=== PATIENT | male | born 1980 | race Caucasian/White ===

== ENCOUNTER 2016-06-30 12:36 | Emergency (ER) | payer OTHER ==
[~2016-06-30] VITALS: Ht 167.6 cm; Wt 129.3 kg
[~2016-06-30 12:36] MED LIST: ALBU0.0912 IH; BUPR-10 PO; PRON INH
[2016-06-30 12:41] VITALS: BP 147/61
--- NOTE | 2016-06-30 13:56 | NUR ---
Patient ambulated to bed 7. RN evaluating patient at bedside.
--- NOTE | 2016-06-30 14:01 | NUR ---
PATIENT PRESENTS TO ED WITH C/O SOB X 1 MONTH---SEEN AT [facility] 1 MONTH AGO DX PNEUMONIA/ RX Z PACK & PREDNISONE; PT STATES DID NOT IMPROVE AND WORSENING; HX CVA, ASTHMA, PNEUMONIA; RX NONE; DENIES N/V/D; SKIN IS PINK/WARM/DRY; AAOX4 WITH EVEN AND STEADY GAIT; LUNGS WHEEZING BL; HR EVEN AND REGULAR; PT DENIES ANY FEVER, OR CP AT THIS TIME; PATIENT STATES PAIN OF 0/10 AT THIS TIME; VSS; PATIENT POSITIONED FOR COMFORT; HOB ELEVATED; BEDRAILS UP X2; BED DOWN. ER MD MADE AWARE OF PT STATUS.
[2016-06-30 14:09] VITALS: BP 120/82
--- NOTE | 2016-06-30 14:09 | NUR ---
Patient discharged with v/s stable. Written and verbal after care instructions given and explained. Patient alert, oriented and verbalized understanding of instructions. Ambulatory with steady gait. All questions addressed prior to discharge. ID band removed. Patient advised to follow up with PMD. Rx of ZITHROMAX, MEDROL given. Patient educated on indication of medication including possible reaction and side effects. Opportunity to ask questions provided and answered. Addendum: 06/30/16 at 1418 by ESTELLE PT REFUSE BREATHING TX, USES A MACHINE
== END 2016-06-30 14:09 | disposition home or self-care (01) ==
LOC: MED 12:36
DX: J45.909 Unspecified asthma, uncomplicated (principal); I10 Essential (primary) hypertension; J44.9 Chronic obstructive pulmonary disease, unspecified; Z86.73 Personal history of transient ischemic attack (TIA), and cerebral infarction without residual deficits; Z88.1 Allergy status to other antibiotic agents
CPT/HCPCS: 71020; 99284

== ENCOUNTER 2016-07-09 16:43 | Emergency (ER) | payer SELFPAY ==
[~2016-07-09 16:43] MED LIST changes: -ALBU0.0912 IH; +ATROVENT IH; +BACTRIM DS 800/1 TAB PO; +BACTRIM DS 8001 TA1 PO; -BUPR-10 PO; +MUCINEX600 MG PO; -PRON INH; +PROVENTIL HFA M18 GM INH; +PROVENTIL2.5 MG/3 M IH; +PROVENTIL2.5 MG/3 M INH; +TYLENOL COLD SE1 TAB PO; +UNICOMPLEX NEW1 CAP PO; +VENTOLIN H0.09 MG/Ac IH; +WELLBUTRIN SR100 MG PO; +XANAX0.25 MG PO; +XANAX0.5 MG PO; +ZITHROMAX Z-PA250 MG PO
--- NOTE | 2016-07-09 18:00 | NUR ---
PATIENT LEFT WITHOUT BEING SEEN BY DR. LOWERY. NO FURTHER CARE PROVIDED FOR PATIENT.
== END 2016-07-09 18:00 | disposition left against medical advice (07) ==
LOC: MED 16:43
DX: R07.0 Pain in throat (principal); Z53.21 Procedure and treatment not carried out due to patient leaving prior to being seen by health care provider

== ENCOUNTER 2016-08-10 04:48 | Emergency (ER) | payer OTHER ==
[~2016-08-10] VITALS: Ht 172.7 cm; Wt 141.1 kg
[2016-08-10 05:05] VITALS: BP 129/70
--- NOTE | 2016-08-10 05:14 | NUR ---
PATIENT TO ER BED 7
[2016-08-10 05:15] VITALS: BP 129/70
--- NOTE | 2016-08-10 05:15 | NUR ---
PT IS 36/M BIB GIRLFRIEND TO ED WITH C/O BOTH LEGS SWELLING AND NUMBNESS X 3-4 DAYS, NO TRAUMA OR INJURYD. ENIES N/V/D; SKIN IS PINK/WARM/DRY; AAOX4 WITH EVEN AND STEADY GAIT; LUNGS CLEAR BL; HR EVEN AND REGULAR; PT DENIES ANY FEVER, CP, SOB, OR COUGH AT THIS TIME; PATIENT STATES PAIN OF 0/10 AT THIS TIME; VSS; PATIENT POSITIONED FOR COMFORT; HOB ELEVATED; BEDRAILS UP X2; BED DOWN. ER MD MADE AWARE OF PT STATUS.
--- NOTE | 2016-08-10 06:38 | NUR ---
PATIENT LEFT WITHOUT BEING SEEN BY DR. CHAVEZ. NO FURTHER CARE PROVIDED FOR PATIENT.
== END 2016-08-10 06:38 | disposition left against medical advice (07) ==
LOC: MED 04:48
DX: M79.89 Other specified soft tissue disorders (principal); R20.0 Anesthesia of skin; Z53.21 Procedure and treatment not carried out due to patient leaving prior to being seen by health care provider

== ENCOUNTER 2016-08-12 02:05 | Emergency (ER) | payer OTHER ==
[~2016-08-12] VITALS: Ht 172.7 cm; Wt 141.1 kg
[2016-08-12 02:06] VITALS: BP 120/66
--- NOTE | 2016-08-12 03:20 | NUR ---
PT TAKEN TO BED 8
--- NOTE | 2016-08-12 03:30 | NUR ---
Patient being evaluated by physician at bedside.
--- NOTE | 2016-08-12 03:57 | NUR ---
X-Ray at bedside.
[2016-08-12 05:33] VITALS: BP 119/70
== END 2016-08-12 05:34 | disposition home or self-care (01) ==
LOC: MED 02:05
DX: R60.0 Localized edema (principal); E66.9 Obesity, unspecified; I10 Essential (primary) hypertension; J45.909 Unspecified asthma, uncomplicated; J44.9 Chronic obstructive pulmonary disease, unspecified; Z68.42 Body mass index [BMI] 45.0-49.9, adult; Z86.73 Personal history of transient ischemic attack (TIA), and cerebral infarction without residual deficits; Z88.1 Allergy status to other antibiotic agents
CPT/HCPCS: 36415; 71010; 80053; 81001; 83880; 85025; 99285; Q0092

== ENCOUNTER 2017-07-16 16:37 | Emergency (ER) | payer OTHER ==
[~2017-07-16] VITALS: Ht 172.7 cm; Wt 122.5 kg
[~2017-07-16 16:37] MED LIST changes: +ALBU0.0912 IH; -ATROVENT IH; -BACTRIM DS 800/1 TAB PO; -BACTRIM DS 8001 TA1 PO; +BUPR-10 PO; -MUCINEX600 MG PO; +PRON INH; -PROVENTIL HFA M18 GM INH; -PROVENTIL2.5 MG/3 M IH; -PROVENTIL2.5 MG/3 M INH; -TYLENOL COLD SE1 TAB PO; -UNICOMPLEX NEW1 CAP PO; -VENTOLIN H0.09 MG/Ac IH; -WELLBUTRIN SR100 MG PO; -XANAX0.25 MG PO; -XANAX0.5 MG PO; -ZITHROMAX Z-PA250 MG PO
[2017-07-16 16:47] VITALS: BP 147/83
--- NOTE | 2017-07-16 16:50 | NUR ---
PT AMBULATED TO [facility] WITH STEADY GATE
[2017-07-16 17:20] VITALS: BP 147/83
--- NOTE | 2017-07-16 17:20 | NUR ---
PATIENT AMBULATED TO ER BED 3
[2017-07-16] MEDS ORDERED: DEXAMETHASONE 10 MG/ML VIAL IM ONE (18:45)
[2017-07-16] MEDS ORDERED: KETOROLAC 60 MG/2 ML VIAL IM ONE (18:45)
--- NOTE | 2017-07-16 18:54 | NUR ---
PT REFUSES MEDS, STATES "IM GONNA GO SMOKE A JOINT" . DR AVENDAÑO INFORMED. AWAITING ID PAPERWORK.
--- NOTE | 2017-07-16 19:01 | NUR ---
PT LEFT WITHOUT D/C PAPERWORK, DR AVENDAÑO INFORMED.
== END 2017-07-16 19:01 | disposition home or self-care (01) ==
LOC: MED 16:37
DX: M10.9 Gout, unspecified (principal); J44.9 Chronic obstructive pulmonary disease, unspecified; I10 Essential (primary) hypertension; Z86.73 Personal history of transient ischemic attack (TIA), and cerebral infarction without residual deficits; Z79.899 Other long term (current) drug therapy; Z88.8 Allergy status to other drugs, medicaments and biological substances
CPT/HCPCS: 99281

== ENCOUNTER 2017-11-15 01:23 | Emergency (ER) | payer OTHER ==
[~2017-11-15] VITALS: Ht 172.7 cm; Wt 135.2 kg
[2017-11-15 01:23] VITALS: BP 156/91
--- NOTE | 2017-11-15 01:23 | NUR ---
PT BIB ALS FOR GENERALIZED BODY ACHES. PT STATS 8/10 PAIN ALL OVER HIS BODY. PT IS HYPERTENSIVE AND TACHY. HE STATES SMOKING "DUBS MARIJUANA" BEFORE COMING TO ED. PT A&OX4. POSITIONED IN BED FOR COMFORT. BILAT WHEEZING HEAR. PT STATES HIS NORM AND NO NEED FOR TREATMENT. BED RAILS UP X2. BED LOW. ER MD AWRE. CONTINUE TO MONITOR.
--- NOTE | 2017-11-15 01:23 | NUR ---
PT [facility]. TAKEN TO BED 2
--- NOTE | 2017-11-15 01:25 | NUR ---
Dr. Donis evaluating patient at bedside.
[2017-11-15] MEDS ORDERED: ALBUTEROL 0.083% 2.5 MG/3 ML NEBU INH ONE (01:50)
[2017-11-15] MEDS ORDERED: ENALAPRILAT 2.5 MG/2 ML VIAL IVP ONE (01:50)
--- NOTE | 2017-11-15 02:09 | NUR ---
PT REFUSED HHN TX. RM LILA AT BEDSIDE. DR STRATTON NOTIFIED.
[2017-11-15 02:34] LABS: ANION GAP 9.2 (8-16); CARBON DIOXIDE 27.7 mmol/L (21-32); CREATININE 0.9 mg/dL (0.7-1.3); POTASSIUM 3.9 mmol/L (3.5-5.1)
[2017-11-15 02:42] LABS: ALBUMIN 3.5 g/dL (3.4-5.0); TOTAL BILIRUBIN 0.4 mg/dL (0.0-1.0)
[2017-11-15 02:46] LABS: CHOL/HDL RATIO 3.4 (1-4.5)
[2017-11-15 02:47] LABS: CREATINE KINASE MB 1.3 ng/mL (0-3.6)
--- NOTE | 2017-11-15 02:47 | NUR ---
PT REFUSED ALL MEDICATOINS AT THIS TIME. DR VIRAL CAMPOS. PT STATES UNDERSTANDING FOR NEED OF MEDICATION. PT STATES HE WANTS PAIN MEDICATION INSTEAD.
[2017-11-15] MEDS ORDERED: KETOROLAC 30 MG/ML VIAL IVP ONE (03:00)
[2017-11-15 03:21] VITALS: BP 143/86
--- NOTE | 2017-11-15 03:21 | NUR ---
Patient discharged with v/s stable. Written and verbal after care instructions given and explained. Patient verbalized understanding. Ambulatory with steady gait. All questions addressed prior to discharge. Advised to follow up with PMD.
[2017-11-15 03:23] LABS: BASOPHILS # (AUTO) 0.1 K/uL (0.00-0.22); BASOPHILS % (AUTO) 0.8 % (0.0-2.0); EOSINOPHILS # (AUTO) 0.6 K/uL (0-0.4); HEMATOCRIT 42.6 % (36-52); HEMOGLOBIN 14.1 g/dL (12.0-18.0); LYMPHOCYTES % (AUTO) 21.1 % (20.5-51.1); MEAN CORPUSCULAR HEMOGLOBIN 27 pg (27-31); MEAN CORPUSCULAR HGB CONC 33 g/dL (33-37); MEAN CORPUSCULAR VOLUME 81.8 fL (80-94); MONOCYTES # (AUTO) 1.1 K/uL (0.8-1.0); MONOCYTES % (AUTO) 7.9 % (1.7-9.3); NEUTROPHILS # (AUTO) 9.5 K/uL (1.8-7.7); NEUTROPHILS % (AUTO) 65.7 % (42.2-75.2); PLATELET COUNT (AUTO) 268 K/uL (140-450); RED BLOOD CELL COUNT(AUTO) 5.21 MIL/uL (4.20-6.10); RED CELL DISTRIBUTION WIDTH 14.2 % (11.6-13.7)
[2017-11-15 03:24] LABS: EOSINOPHILS % (AUTO) 4.5 % (0.0-4.0); WHITE BLOOD COUNT (AUTO) 14.4 K/uL (4.8-10.8)
== END 2017-11-15 03:21 | disposition home or self-care (01) ==
LOC: MED 01:23
DX: M43.6 Torticollis (principal); J45.909 Unspecified asthma, uncomplicated; Z86.73 Personal history of transient ischemic attack (TIA), and cerebral infarction without residual deficits; Z88.8 Allergy status to other drugs, medicaments and biological substances; Z79.899 Other long term (current) drug therapy
CPT/HCPCS: 36415; 71045; 80053; 82550; 82553; 83880; 84484; 85025; 85379; 93005; 99285; J1885; J3490; J7613

== ENCOUNTER 2018-07-17 01:57 | Emergency (ER) | payer MEDICAID, OTHER ==
[~2018-07-17] VITALS: Ht 172.7 cm; Wt 136.1 kg
[2018-07-17 02:00] VITALS: BP 144/67
--- NOTE | 2018-07-17 02:00 | NUR ---
TO BED # 09 AMBULATORY
--- NOTE | 2018-07-17 02:07 | NUR ---
38/M PRESENTS TO ED WITH FAMILY/FRIEND, C/O PRODUCTIVE COUGH WITH WHITE CREAMY PHLEGM, X1 WEEK. PT REPORTS SUBJECTIVE FEVER, AFEBRILE AT THIS TIME. REPORTS CHEST TIGHTNESS. DENIES N/V. PT AOX4, GCS 15, SKIN NORMAL DRY AND INTACT, RR EVEN AND UNLABORED. LUNGS WITH R GREATER THAN L WHEEZE. HX ASTHMA, CVA (10-15 YEARS AGO), PNA (1997) DENIES TAKING RX; REPORTS MARIJUANA SMOKING
--- NOTE | 2018-07-17 02:14 | NUR ---
Patient being evaluated by physician at bedside.
[2018-07-17] MEDS ORDERED: ALBUTEROL SULFATE/IPRATROPIU 3 ML SOL IH ONE ×2 (02:20→03:10)
--- NOTE | 2018-07-17 02:30 | NUR ---
Respiratory Therapist at bedside for respiratory intervention.
--- NOTE | 2018-07-17 02:53 | NUR ---
X-Ray at bedside.
[2018-07-17] MEDS ORDERED: AZITHROMYCIN 250 MG TAB PO ONE (03:10)
[2018-07-17] MEDS ORDERED: methylPREDNISolone SS 125 MG/2 ML VIAL IM ONE (03:10)
--- NOTE | 2018-07-17 03:18 | NUR ---
Respiratory Therapist at bedside for respiratory intervention.
--- NOTE | 2018-07-17 03:30 | NUR ---
Dr. Talamantes at bedside
[2018-07-17 03:39] VITALS: BP 132/95
--- NOTE | 2018-07-17 03:39 | NUR ---
Patient discharged with v/s stable. Written and verbal after care instructions given and explained. Patient alert, oriented and verbalized understanding of instructions. Ambulatory with steady gait. All questions addressed prior to discharge. ID band removed. Patient advised to follow up with PMD. Rx of PREDNISONE, ALBUTEROL INHALER, AZITHROMYCIN given. Patient educated on indication of medication including possible reaction and side effects. Opportunity to ask questions provided and answered.
== END 2018-07-17 03:39 | disposition home or self-care (01) ==
LOC: MED 01:57
DX: J20.9 Acute bronchitis, unspecified (principal); J44.9 Chronic obstructive pulmonary disease, unspecified; I10 Essential (primary) hypertension; F12.10 Cannabis abuse, uncomplicated; Z86.73 Personal history of transient ischemic attack (TIA), and cerebral infarction without residual deficits; Z88.8 Allergy status to other drugs, medicaments and biological substances; Z79.899 Other long term (current) drug therapy
CPT/HCPCS: 71045; 94640; 96372; 99284; J2930; J7620; Q0092

== ENCOUNTER 2018-10-27 03:10 | Emergency (ER) | payer MEDICAID ==
[~2018-10-27] VITALS: Ht 172.7 cm; Wt 131.5 kg
[2018-10-27 03:19] VITALS: BP 150/80
--- NOTE | 2018-10-27 03:19 | NUR ---
to bed # 08 ambulatory
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
[2018-10-27] MEDS ORDERED: DICYCLOMINE HCL LIQUID 20 MG, ALUMINUM HYD/MAG/SIMETHICONE 30 ML, LIDOCAINE VISCOUS 2% ... PO ONE ×3 (04:00)
[2018-10-27] MEDS ORDERED: ONDANSETRON 4 MG ODT PO ONE (04:00)
[2018-10-27 04:25] VITALS: BP 121/81
--- NOTE | 2018-10-27 04:32 | NUR ---
Patient discharged with v/s stable. Written and verbal after care instructions given and explained. Pt educated on eating low sugar, no caffeinated, no greasy or fatty foods, and to drink enough water until urine is clear. Patient alert, oriented and verbalized understanding of instructions. Ambulatory with steady gait. All questions addressed prior to discharge. ID band removed. Patient advised to follow up with PMD. Rx of ZOFRAN was given. Patient educated on indication of medication including possible reaction and side effects. Opportunity to ask questions provided and answered.
== END 2018-10-27 04:25 | disposition home or self-care (01) ==
LOC: MED 03:10
DX: T62.8X1A Toxic effect of other specified noxious substances eaten as food, accidental (unintentional), initial encounter (principal); R11.2 Nausea with vomiting, unspecified; K92.0 Hematemesis; R19.7 Diarrhea, unspecified; J44.9 Chronic obstructive pulmonary disease, unspecified; I10 Essential (primary) hypertension; J45.909 Unspecified asthma, uncomplicated; Z86.73 Personal history of transient ischemic attack (TIA), and cerebral infarction without residual deficits; Z79.899 Other long term (current) drug therapy; Z88.8 Allergy status to other drugs, medicaments and biological substances; Y92.89 Other specified places as the place of occurrence of the external cause
CPT/HCPCS: 99283; Q0162

== ENCOUNTER 2018-11-26 23:41 | Emergency (ER) | payer MEDICAID ==
[~2018-11-26] VITALS: Ht 172.7 cm; Wt 127.0 kg
[2018-11-26 23:41] VITALS: BP 123/71
--- NOTE | 2018-11-26 23:41 | NUR ---
PT [facility] ALS. TAKEN TO BED 9
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
[2018-11-26] MEDS ORDERED: IPRATROPIUM 0.02% 0.5 MG/2.5 ML NEBU INH ONE (23:50)
[2018-11-26] MEDS ORDERED: ALBUTEROL 0.083% 2.5 MG/3 ML NEBU INH ONE (23:50)
--- NOTE | 2018-11-26 23:51 | NUR ---
X-Ray at bedside.
--- NOTE | 2018-11-26 23:56 | NUR ---
Jolene madsen in [facility] - 11/26/18 at [address] Miguel Angel zuniga patient.
--- NOTE | 2018-11-26 23:56 | NUR ---
Dr. Michelle examinig patient.
--- NOTE | 2018-11-26 23:56 | NUR ---
Respiratory Therapist at bedside for respiratory intervention
[2018-11-27] MEDS ORDERED: DEXAMETHASONE 4 MG TAB PO STA (00:48)
--- NOTE | 2018-11-27 00:51 | NUR ---
PT LAYING IN BED, SPO2 97% ON RA, RR EVEN AND UNLABORED. LUNG SOUNDS WITH MILD EXPIRATORY WHEEZE BUT WITH SIGNIFICANT IMPROVEMENT. PT DENIES SOB, REPORTS FEELING BETTER. ALL NEEDS MET.
[2018-11-27] MEDS ORDERED: DEXAMETHASONE 4 MG TAB ONE (01:27)
[2018-11-27 01:50] VITALS: BP 111/81
--- NOTE | 2018-11-27 01:50 | NUR ---
PT DISCHARGED WITH PAPERWORK. RX VENTOLIN INHALATION AEROSOL. EDUCATED PT REGARDING MEDICATION AND S/E. EDUCATED PT REGARDING D/C DIAGNOSIS AND INSTRUCTIONS. PT VERBALIZED UNDERSTANDING OF TEACHING. TOLD PT TO FOLLOW UP WITH PCP AND WHEN TO RETURN TO ED. PT VSS. PT DENIES ANY SOB/DIFFICULTY BREATHING. ALL QUESTIONS ANSWERED.
== END 2018-11-27 01:50 | disposition home or self-care (01) ==
LOC: MED 23:41
DX: J45.901 Unspecified asthma with (acute) exacerbation (principal); I10 Essential (primary) hypertension; J44.9 Chronic obstructive pulmonary disease, unspecified; Z86.73 Personal history of transient ischemic attack (TIA), and cerebral infarction without residual deficits; Z79.899 Other long term (current) drug therapy; Z88.8 Allergy status to other drugs, medicaments and biological substances
CPT/HCPCS: 71045; 94640; 99283; J7613; J7644; Q0092

== ENCOUNTER 2019-02-06 02:48 | Emergency (ER) | payer MEDICAID ==
[~2019-02-06] VITALS: Ht 172.7 cm; Wt 136.1 kg
[2019-02-06 02:50] VITALS: BP 148/80
--- NOTE | 2019-02-06 02:50 | NUR ---
PT AMBUALTED TO BED #4
[2019-02-06] MEDS ORDERED: predniSONE 20 MG TAB PO ONE (02:55)
[2019-02-06] MEDS ORDERED: ALBUTEROL 0.083% 2.5 MG/3 ML NEBU INH ONE ×2 (02:55→03:25)
[2019-02-06] MEDS ORDERED: ALBUTEROL SULFATE/IPRATROPIU 3 ML SOL IH ONE (02:55)
--- NOTE | 2019-02-06 02:55 | NUR ---
38 Y/O M PRESENTS TO ER C/O SHORTNESS OF BREATH X3 DAYS. RESPIRATIONS ARE EVEN AND LABORED. BILATERAL WHEEZING HEARD THROUGHOUT. RESPIRATIONS 26/MIN. O2 SATURATION 95% ON RA. PT C/O CHEST PAIN UPON BREATHING. PAIN 9/10, DULL, COMES AND GOES. PT PLACED IN HIGH FOWLERS POSITION, BED IN LOWEST POSITION, SIDE RAIL UP X1. WAITING FOR ERMD TO EVALUATE PT. ALLERGIES: NKA MED HX: ASTHMA AND STROKE
--- NOTE | 2019-02-06 03:04 | NUR ---
DR. JUNIOR EVALUATING PT AT BEDSIDE
--- NOTE | 2019-02-06 03:07 | NUR ---
RT AT BEDSIDE FOR BREATHING TX
--- NOTE | 2019-02-06 04:21 | NUR ---
RT AT BEDSIDE
--- NOTE | 2019-02-06 04:29 | NUR ---
Patient discharged with v/s stable. Written and verbal after care instructions given and explained. Pt encouraged to take medications as needed and to follow up with PCP. Patient alert, oriented and verbalized understanding of instructions. Ambulatory with steady gait. All questions addressed prior to discharge. ID band removed. Patient advised to follow up with PMD. Rx of PREDNISONE 20MG AND ALBUTEROL 90MCG WAS GIVEN. given. Patient educated on indication of medication including possible reaction and side effects. Opportunity to ask questions provided and answered.
[2019-02-06 04:30] VITALS: BP 135/65
== END 2019-02-06 04:29 | disposition home or self-care (01) ==
LOC: MED 02:48
DX: J44.9 Chronic obstructive pulmonary disease, unspecified (principal); I10 Essential (primary) hypertension; F17.200 Nicotine dependence, unspecified, uncomplicated; Z86.73 Personal history of transient ischemic attack (TIA), and cerebral infarction without residual deficits; Z79.899 Other long term (current) drug therapy; Z88.1 Allergy status to other antibiotic agents
CPT/HCPCS: 94640; 99284; J7512; J7613; J7620; 94644

== ENCOUNTER 2019-04-11 02:23 | Emergency (ER) | payer MEDICAID ==
[~2019-04-11] VITALS: Ht 172.7 cm; Wt 136.1 kg
[2019-04-11 02:37] VITALS: BP 148/47
--- NOTE | 2019-04-11 03:55 | NUR ---
PATIENT AMB TO BED 11. HOOKED UP TO O2 MONITOR
--- NOTE | 2019-04-11 03:59 | NUR ---
39 Y/O MALE C/O SOB X3 DAYS INCREASING TODAY. +DRY COUGH PER PT. STATES HE HAS ALBUTEROL INHALER BUT NO RELIEF. RR DEEP, LABORED, INCREASED WORK OF BREATHING NOTED. PT STATES LT EAR PAIN X2 DAYS. DENIES DRAINAGE. PER PT HE HAS BEEN FEBRILE, AFEBRILE AT THIS TIME. 8/10 ACHING TO LT EAR. PT PLACED ON 02 MONITOR, 95% ON RA. DR CHACON MADE AWARE MEDHX: ASTHMA, STROKE ALLERGIES: FLAGYL
--- NOTE | 2019-04-11 04:01 | NUR ---
DR CHACON AT BEDSIDE EXAMINING PT.
[2019-04-11] MEDS ORDERED: ALBUTEROL SULFATE/IPRATROPIU 3 ML SOL IH STA (04:03)
[2019-04-11] MEDS ORDERED: ALBUTEROL 0.083% 2.5 MG/3 ML NEBU INH STA (04:03)
[2019-04-11] MEDS ORDERED: DEXAMETHASONE 4 MG/ML VIAL PO STA (04:04)
--- NOTE | 2019-04-11 04:20 | NUR ---
RESPIRATORY AT BEDSIDE FOR INTERVENTION.
--- NOTE | 2019-04-11 04:38 | NUR ---
STATES EASIER WORK OF BREATHING.
--- NOTE | 2019-04-11 05:55 | NUR ---
RESTING WITH EYES CLOSED, VISIBLE RISE AND FALL OF THE CHEST. X1 SIDE RAIL RAISED. VSS. WILL CONTINUE TO MONITOR.
--- NOTE | 2019-04-11 06:02 | NUR ---
Patient discharged with v/s stable. Written and verbal after care instructions given and explained. Patient alert, oriented and verbalized understanding of instructions. Ambulatory with steady gait. All questions addressed prior to discharge. ID band removed. Patient advised to follow up with PMD. Rx of DEBROX AND VENTOLIN given. Patient educated on indication of medication including possible reaction and side effects. Opportunity to ask questions provided and answered.
[2019-04-11 06:03] VITALS: BP 148/47
== END 2019-04-11 06:02 | disposition home or self-care (01) ==
LOC: MED 02:23
DX: J44.0 Chronic obstructive pulmonary disease with (acute) lower respiratory infection (principal); I10 Essential (primary) hypertension; F17.200 Nicotine dependence, unspecified, uncomplicated; I63.9 Cerebral infarction, unspecified; Z88.8 Allergy status to other drugs, medicaments and biological substances; Z79.899 Other long term (current) drug therapy
CPT/HCPCS: 94640; 99283; J1100; J7613; J7620

== ENCOUNTER 2019-04-16 04:38 | Emergency (ER) | payer MEDICAID ==
[~2019-04-16] VITALS: Ht 172.7 cm; Wt 136.1 kg
[2019-04-16 04:44] VITALS: BP 104/70
--- NOTE | 2019-04-16 04:44 | NUR ---
PT TAKEN TO BED 11
[2019-04-16 04:45] VITALS: BP 104/70
--- NOTE | 2019-04-16 04:45 | NUR ---
PT ASSESSMENT COMPLETE. PT SEATED UPRIGHT IN BED. WILL CONTINUE TO MONITOR.
--- NOTE | 2019-04-16 04:50 | NUR ---
Dr. Quan examining patient.
[2019-04-16] MEDS ORDERED: ALBUTEROL SULFATE/IPRATROPIU 3 ML SOL IH ONE (05:00)
--- NOTE | 2019-04-16 05:03 | NUR ---
Respiratory Therapist at bedside for respiratory intervention.
--- NOTE | 2019-04-16 05:14 | NUR ---
BILATERAL LUNG ARNOLD CLEAR THROUGHOUT. O2 SAT AT 99% RA
--- NOTE | 2019-04-16 05:40 | NUR ---
Patient discharged with v/s stable. Written and verbal after care instructions given and explained. Patient alert, oriented and verbalized understanding of instructions. Ambulatory with steady gait. All questions addressed prior to discharge. ID band removed. Patient advised to follow up with PMD. Rx of ALBUTEROL AND DEBROX given. Patient educated on indication of medication including possible reaction and side effects. Opportunity to ask questions provided and answered.
== END 2019-04-16 05:40 | disposition home or self-care (01) ==
LOC: MED 04:38
DX: H61.21 Impacted cerumen, right ear (principal); H92.02 Otalgia, left ear; H57.89 Other specified disorders of eye and adnexa; J44.9 Chronic obstructive pulmonary disease, unspecified; I10 Essential (primary) hypertension; F17.210 Nicotine dependence, cigarettes, uncomplicated; Z88.1 Allergy status to other antibiotic agents; Z79.899 Other long term (current) drug therapy
CPT/HCPCS: 94640; 99283; J7620

== ENCOUNTER 2019-11-18 23:05 | Emergency (ER) | payer MEDICAID ==
[~2019-11-18] VITALS: Ht 172.7 cm; Wt 129.7 kg
[2019-11-18 23:26] VITALS: BP 144/92
--- NOTE | 2019-11-18 23:31 | NUR ---
PT AMBULATED TO BED 12 WITH STEADY GAIT
--- NOTE | 2019-11-18 23:40 | NUR ---
ADMITTED PT IN ER BED 12. PT C/O LEFT SHOULDER PAIN STATED FROM A BUG BITE. PAIN 0/10 AT THE TIME OF ADMISSION. NOTED ERHYTHEMA ON THE LT BACK SHOULDER WITH 3 PIMPLE LOOKING SPOTS. PER PT HE SCRATCH IT AND STARTED TO GET PAIN FOR 2 DAYS NOW. ALLERGY: METRONIDAZOLE PMH : ASTHMA, HTN, BORDERLINE DIABETES X 2YRS ( NOT ON MEDS), BIPOLAR DISORDER, ANXIETY MEDICATION: XANAX, PRN ALBUTEROL INHALER
[2019-11-19] MEDS ORDERED: cephALEXin 500 MG CAP PO ONE (00:05)
[2019-11-19] MEDS ORDERED: SULFAMETH/TRIMETH DS 800/160MG 1 TAB PO ONE (00:05)
--- NOTE | 2019-11-19 00:06 | NUR ---
ERMD AT BEDSIDE PERFORMING ULTRASOUND
--- NOTE | 2019-11-19 00:10 | NUR ---
KOREY SOTELO AT THE BEDSIDE ASSESSING AND EVALUATING THE PT.
--- NOTE | 2019-11-19 00:18 | NUR ---
ADMINISTERED THE MEDICATIONS KEFLEX AND BACTRIM ORDERED FOR THE PT BY DR SOTELO. PT TOLERATED IT WELL.
[2019-11-19 00:30] VITALS: BP 144/92
--- NOTE | 2019-11-19 00:31 | NUR ---
Patient discharged with v/s stable. Written and verbal after care instructions given and explained. Patient alert, oriented and verbalized understanding of instructions. Ambulatory with steady gait. All questions addressed prior to discharge. ID band removed. Patient advised to follow up with PMD. Rx of KEFLEX, BACTRIM given. Patient educated on indication of medication including possible reaction and side effects. Opportunity to ask questions provided and answered.
== END 2019-11-19 00:31 | disposition home or self-care (01) ==
LOC: MED 23:05
DX: L03.312 Cellulitis of back [any part except buttock and flank] (principal); F17.210 Nicotine dependence, cigarettes, uncomplicated; I10 Essential (primary) hypertension; I63.9 Cerebral infarction, unspecified; J45.909 Unspecified asthma, uncomplicated; J44.9 Chronic obstructive pulmonary disease, unspecified; Z88.1 Allergy status to other antibiotic agents; Z79.899 Other long term (current) drug therapy
CPT/HCPCS: 99283; 99284

== ENCOUNTER 2020-06-22 01:47 | Emergency (ER) | payer MEDICAID ==
[~2020-06-22] VITALS: Ht 172.7 cm; Wt 113.4 kg
[2020-06-22 01:53] VITALS: BP 134/82
[2020-06-22] MEDS ORDERED: HYDROcodone/APAP 5/325 MG 1 TAB TAB PO ONE (03:05)
[2020-06-22 04:57] VITALS: BP 134/82
== END 2020-06-22 04:58 | disposition home or self-care (01) ==
LOC: MED 01:47
DX: S09.90XA Unspecified injury of head, initial encounter (principal); H05.221 Edema of right orbit; J44.9 Chronic obstructive pulmonary disease, unspecified; I10 Essential (primary) hypertension; Z86.73 Personal history of transient ischemic attack (TIA), and cerebral infarction without residual deficits; Z88.8 Allergy status to other drugs, medicaments and biological substances; Z79.899 Other long term (current) drug therapy; Y04.2XXA Assault by strike against or bumped into by another person, initial encounter; Y93.89 Activity, other specified; Y92.89 Other specified places as the place of occurrence of the external cause; Y99.8 Other external cause status
CPT/HCPCS: 70450; 70486; 72125; 99285

== ENCOUNTER 2020-12-08 12:35 | Emergency (ER) | payer MEDICAID ==
[~2020-12-08] VITALS: Ht 172.7 cm; Wt 90.7 kg
[2020-12-08 12:41] VITALS: BP 135/90
--- NOTE | 2020-12-08 12:47 | NUR ---
C/O 6/10 SORE THROAT, SUBJECTIVE FEVER, BODY ACHE X 2 DAYS. PMH: STROKE, ASTHMA
--- NOTE | 2020-12-08 12:48 | NUR ---
TENT 1
--- NOTE | 2020-12-08 13:17 | NUR ---
COVID PCR SWAB DONE.
[2020-12-08] MEDS ORDERED: NAPR-54 PO (13:18)
[2020-12-08] MEDS ORDERED: PHEN177S23 PO (13:18)
--- NOTE | 2020-12-08 13:45 | NUR ---
Patient discharged with v/s stable. Written and verbal after care instructions given and explained. Patient alert, oriented and verbalized understanding of instructions. Ambulatory with steady gait. All questions addressed prior to discharge. ID band removed. Patient advised to follow up with PMD. Rx of NAPROSYN & CHLORASEPTIC given. Patient educated on indication of medication including possible reaction and side effects. Opportunity to ask questions provided and answered.
[2020-12-08 13:52] VITALS: BP 135/90
== END 2020-12-08 13:45 | disposition home or self-care (01) ==
LOC: MED 12:35
DX: J06.9 Acute upper respiratory infection, unspecified (principal); Z20.822 Contact with and (suspected) exposure to COVID-19; J44.9 Chronic obstructive pulmonary disease, unspecified; I10 Essential (primary) hypertension; Z86.73 Personal history of transient ischemic attack (TIA), and cerebral infarction without residual deficits; Z79.899 Other long term (current) drug therapy; Z88.8 Allergy status to other drugs, medicaments and biological substances
CPT/HCPCS: 71045; 99284; U0003

== ENCOUNTER 2020-12-11 14:56 | Emergency (ER) | payer MEDICAID ==
[~2020-12-11] VITALS: Ht 172.7 cm; Wt 113.4 kg
[~2020-12-11 14:56] MED LIST changes: +NAPR-54 PO; +PHEN177S23 PO
[2020-12-11 15:13] VITALS: BP 129/80
[2020-12-11] MEDS ORDERED: KETOROLAC 30 MG/ML VIAL IM ONE (15:20)
--- NOTE | 2020-12-11 15:31 | NUR ---
40/M PRESENTS TO ED WITH C/O RIGHT LOWER LEG PAIN SINCE THIS MORNING. PATIENT DENIES INJURY OR TRAUMA, STATING HE WOKE UP WITH THE PAIN. REPORTS 10/10 PAIN THAT WORSENS WITH AMBULATION OR ANY WEIGHT BEARING, STATES NONRADIATING. PATIENT DENIES TAKING ANYTHING FOR PAIN PRIOR TO ARRIVAL. RIGHT LOWER LEG APPEARS RED AND SWOLLEN, TENDER TO TOUCH. DENIES CP, SOB, FEVER OR CHILLS.
--- NOTE | 2020-12-11 15:31 | NUR ---
US TECH AT BEDSIDE
[2020-12-11] MEDS ORDERED: CEPH-588 PO (16:25)
[2020-12-11] MEDS ORDERED: NAPR-54 PO (16:25)
[2020-12-11 16:48] VITALS: BP 129/80
--- NOTE | 2020-12-11 16:48 | NUR ---
Patient discharged with v/s stable. Written and verbal after care instructions given and explained. Patient alert, oriented and verbalized understanding of instructions. Wheel Chair Assisted with to car. All questions addressed prior to discharge. ID band removed. Patient advised to follow up with PMD. Rx of IBUPROFEN, AND KEFLEX given. Patient educated on indication of medication including possible reaction and side effects. Opportunity to ask questions provided and answered.
== END 2020-12-11 16:48 | disposition home or self-care (01) ==
LOC: MED 14:56
DX: L03.115 Cellulitis of right lower limb (principal); J44.9 Chronic obstructive pulmonary disease, unspecified; I10 Essential (primary) hypertension; Z86.73 Personal history of transient ischemic attack (TIA), and cerebral infarction without residual deficits; Z88.8 Allergy status to other drugs, medicaments and biological substances
CPT/HCPCS: 93971; 99284; Q0092; J1885

== ENCOUNTER 2020-12-12 13:52 | Emergency (ER) | payer MEDICAID ==
[~2020-12-12] VITALS: Ht 172.7 cm; Wt 113.4 kg
[~2020-12-12 13:52] MED LIST changes: +CEPH-588 PO
[2020-12-12 14:37] VITALS: BP 138/85
[2020-12-12] MEDS ORDERED: cefTRIAXone 1,000 MG in LIDOCAINE MPF 1% 2.1 ML IM ONE (15:15)
--- NOTE | 2020-12-12 15:24 | NUR ---
40/M PRESENTS TO ED WITH C/O RIGHT LOWER LEG PAIN X2 DAYS. PATIENT DENIES INJURY OR TRAUMA, STATING HE WOKE UP WITH THE PAIN YESTERDAY. REPORTS 10/10 PAIN THAT WORSENS WITH AMBULATION OR ANY WEIGHT BEARING, STATES NONRADIATING. PATIENT WAS SEEN HERE YESTERDAY FOR SAME SYMPTOMS, SITE WAS OUTLINED WITH WOUND PEN AND PT WAS TOLD TO RETURN IF WOUND CROSSED LINES. PATIENT DENIES TAKING ANYTHING FOR PAIN PRIOR TO ARRIVAL. RIGHT LOWER LEG APPEARS RED AND SWOLLEN, TENDER TO TOUCH. DENIES CP, SOB, FEVER OR CHILLS.
[2020-12-12] MEDS ORDERED: cefTRIAXone 1,000 MG VIAL ONE (15:28)
[2020-12-12] MEDS ORDERED: LIDOCAINE MPF 1% 5 ML ONE (15:28)
[2020-12-12 16:39] VITALS: BP 133/75
== END 2020-12-12 16:39 | disposition home or self-care (01) ==
LOC: MED 13:52
DX: L03.115 Cellulitis of right lower limb (principal); J44.9 Chronic obstructive pulmonary disease, unspecified; I10 Essential (primary) hypertension; Z86.73 Personal history of transient ischemic attack (TIA), and cerebral infarction without residual deficits; Z79.899 Other long term (current) drug therapy; Z79.1 Long term (current) use of non-steroidal anti-inflammatories (NSAID); Z79.2 Long term (current) use of antibiotics; Z79.51 Long term (current) use of inhaled steroids; Z88.1 Allergy status to other antibiotic agents
CPT/HCPCS: 96372; 99283; J0696; J2001

== ENCOUNTER 2021-03-21 22:00 | Emergency (ER) | payer MEDICAID ==
[~2021-03-21] VITALS: Ht 172.7 cm; Wt 127.0 kg
[2021-03-21 22:23] VITALS: BP 149/91
[2021-03-21] MEDS ORDERED: predniSONE 20 MG TAB PO ONE (23:00)
[2021-03-21] MEDS ORDERED: IPRATROPIUM 0.02% 0.5 MG/2.5 ML NEBU INH ONE (23:00)
[2021-03-21] MEDS ORDERED: ALBUTEROL 0.083% 2.5 MG/3 ML NEBU INH ONE (23:00)
[2021-03-22] MEDS ORDERED: predniSONE 20 MG TAB ONE (00:08)
--- NOTE | 2021-03-22 00:14 | NUR ---
SWAB COLLECTED TAKEN TO LAB
--- NOTE | 2021-03-22 02:30 | NUR ---
PT NOT IN TENT
[2021-03-22 02:50] VITALS: BP 149/91
--- NOTE | 2021-03-22 02:50 | NUR ---
Patient discharged with v/s stable. Written and verbal after care instructions given and explained. Patient alert, oriented and verbalized understanding of instructions. Ambulatory with steady gait. All questions addressed prior to discharge. ID band removed. Patient advised to follow up with PMD. Rx of PREDNISONE AND ALBUTEROL given. Patient educated on indication of medication including possible reaction and side effects. Opportunity to ask questions provided and answered. PT LEFT WITHOUT PAPERWORK.
[2021-03-22] MEDS ORDERED: PRON INH (04:40)
[2021-03-22] MEDS ORDERED: PRED50TA2 PO (04:40)
== END 2021-03-22 02:50 | disposition home or self-care (01) ==
LOC: MED 22:00
DX: J44.0 Chronic obstructive pulmonary disease with (acute) lower respiratory infection (principal); Z88.8 Allergy status to other drugs, medicaments and biological substances; J45.909 Unspecified asthma, uncomplicated; Z86.73 Personal history of transient ischemic attack (TIA), and cerebral infarction without residual deficits; I10 Essential (primary) hypertension; Z20.822 Contact with and (suspected) exposure to COVID-19
CPT/HCPCS: 94640; 99283; J7512; J7613; J7644; U0003

== ENCOUNTER 2021-03-30 14:00 | Emergency (ER) | payer MEDICAID ==
[~2021-03-30] VITALS: Ht 172.7 cm; Wt 120.2 kg
[~2021-03-30 14:00] MED LIST changes: +PRED50TA2 PO
[2021-03-30 14:56] VITALS: BP 144/96
--- NOTE | 2021-03-30 14:58 | NUR ---
novel was swabbed
[2021-03-30] MEDS ORDERED: AZIT250T4 PO (16:24)
[2021-03-30] MEDS ORDERED: PRED20TA5 PO (16:24)
[2021-03-30] MEDS ORDERED: PROM118S5 PO (16:24)
[2021-03-30 17:01] VITALS: BP 144/96
--- NOTE | 2021-03-30 17:01 | NUR ---
Patient discharged with v/s stable. Written and verbal after care instructions given and explained. Patient alert, oriented and verbalized understanding of instructions. Ambulatory with steady gait. All questions addressed prior to discharge. ID band removed. Patient advised to follow up with PMD. Rx of azithromycin, prenisone, promethazine (sent) given. Patient educated on indication of medication including possible reaction and side effects. Opportunity to ask questions provided and answered.
== END 2021-03-30 16:58 | disposition home or self-care (01) ==
LOC: MED 14:00
DX: U07.1 COVID-19 (principal)
CPT/HCPCS: 71045; 99284; U0003

== ENCOUNTER 2021-05-23 15:02 | Emergency (ER) | payer MEDICAID ==
[~2021-05-23] VITALS: Ht 172.7 cm; Wt 113.4 kg
[~2021-05-23 15:02] MED LIST changes: +AZIT250T4 PO; +PRED20TA5 PO; +PROM118S5 PO
[2021-05-23 15:46] VITALS: BP 144/99
[2021-05-23] MEDS ORDERED: KETOROLAC 30 MG/ML VIAL IM ONE (16:25)
[2021-05-23] MEDS ORDERED: NAPR-54 PO (17:40)
[2021-05-23] MEDS ORDERED: ALBU0.0912 IH (17:40)
[2021-05-23] MEDS ORDERED: PRED20TA5 PO (17:40)
[2021-05-23] MEDS ORDERED: PROM118S5 PO (17:40)
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
[2021-05-23] MEDS ORDERED: KETOROLAC 30 MG/ML VIAL ONE (18:03)
[2021-05-23 18:10] VITALS: BP 144/99
--- NOTE | 2021-05-23 18:10 | NUR ---
Patient discharged with v/s stable. Written and verbal after care instructions given and explained. Patient alert, oriented and verbalized understanding of instructions. Ambulatory with steady gait. All questions addressed prior to discharge. ID band removed. Patient advised to follow up with PMD. Rx of PROMETHAZINE, DELTASONE, NAPROSYN, ALBUTEROL given. Patient educated on indication of medication including possible reaction and side effects. Opportunity to ask questions provided and answered.
== END 2021-05-23 18:10 | disposition home or self-care (01) ==
LOC: MED 15:02
DX: S96.912A Strain of unspecified muscle and tendon at ankle and foot level, left foot, initial encounter (principal); I10 Essential (primary) hypertension; J44.9 Chronic obstructive pulmonary disease, unspecified; F17.290 Nicotine dependence, other tobacco product, uncomplicated; Z71.6 Tobacco abuse counseling; Z88.8 Allergy status to other drugs, medicaments and biological substances; Z86.73 Personal history of transient ischemic attack (TIA), and cerebral infarction without residual deficits; X58.XXXA Exposure to other specified factors, initial encounter; Y93.89 Activity, other specified; Y92.89 Other specified places as the place of occurrence of the external cause; Y99.8 Other external cause status
CPT/HCPCS: 73610; 73630; 96372; 99284; J1885

== ENCOUNTER 2023-06-03 16:28 | Emergency (ER) | payer MEDICAID ==
[~2023-06-03] VITALS: Ht 172.7 cm; Wt 125.0 kg
[~2023-06-03 16:28] MED LIST changes: -ALBU0.0912 IH; +ALBU0.0912 INH; +ATRMDI IH; -AZIT250T4 PO; -BUPR-10 PO; -CEPH-588 PO; +DIPH25SG5 PO; +LEVO750T75 PO; -NAPR-54 PO; +NICO1PAT16 TP; -PHEN177S23 PO; -PRED50TA2 PO; -PROM118S5 PO; -PRON INH
[2023-06-03 16:37] VITALS: BP 114/61; PULSE 103; RESP 18; TEMP 98.1; O2SAT 94
[2023-06-03 20:40] LABS: BASOPHILS # (AUTO) 0.2 K/uL (0.00-0.22); EOSINOPHILS % (AUTO) 10.3 % (0.0-4.0); HEMATOCRIT 43.9 % (36-52); HEMOGLOBIN 14.7 g/dL (12.0-18.0); LYMPHOCYTES % (AUTO) 30.1 % (20.5-51.1); MEAN CORPUSCULAR HEMOGLOBIN 28 pg (27-31); MEAN CORPUSCULAR HGB CONC 34 g/dL (33-37); MONOCYTES # (AUTO) 1.1 K/uL (0.8-1.0); MONOCYTES % (AUTO) 10.6 % (1.7-9.3); NEUTROPHILS # (AUTO) 4.7 K/uL (1.8-7.7); PLATELET COUNT (AUTO) 207 K/uL (140-450); RED BLOOD CELL COUNT(AUTO) 5.22 MIL/uL (4.20-6.10); RED CELL DISTRIBUTION WIDTH 14.7 % (11.6-13.7); WHITE BLOOD COUNT (AUTO) 10.1 K/uL (4.8-10.8)
[2023-06-03 21:11] LABS: INR 0.94 (0.8-1.2); PARTIAL THROMBOPLASTIN TIME 25.2 secs (22-35.6); PROTHROMBIN TIME 9.9 secs (10.8-13.4)
[2023-06-03 21:22] LABS: ANION GAP 10.9 (8-16); CALCIUM 8.2 mg/dL (8.5-10.1); CARBON DIOXIDE 29.5 mmol/L (21-32); CREATININE 0.9 mg/dL (0.6-1.3); POTASSIUM 4.4 mmol/L (3.5-5.1)
[2023-06-03] MEDS ORDERED: FURO-572 PO (22:44)
== END 2023-06-03 22:48 | disposition home or self-care (01) ==
LOC: MED 16:28
DX: R60.9 Edema, unspecified (principal); J44.9 Chronic obstructive pulmonary disease, unspecified; I10 Essential (primary) hypertension; J45.909 Unspecified asthma, uncomplicated; F12.90 Cannabis use, unspecified, uncomplicated; F17.200 Nicotine dependence, unspecified, uncomplicated; Z86.73 Personal history of transient ischemic attack (TIA), and cerebral infarction without residual deficits; Z88.8 Allergy status to other drugs, medicaments and biological substances; Z79.899 Other long term (current) drug therapy
CPT/HCPCS: 36415; 71045; 80048; 83880; 84484; 85025; 85379; 85610; 85730; 93005; 99285

== ENCOUNTER 2023-06-16 15:25 | Emergency (ER) | payer MEDICAID ==
[~2023-06-16] VITALS: Ht 172.7 cm; Wt 99.8 kg
[~2023-06-16 15:25] MED LIST changes: +FURO-572 PO
[2023-06-16 15:42] VITALS: BP 133/83; PULSE 91; RESP 16; TEMP 97.8; O2SAT 100
[2023-06-16] MEDS: ACETAMINOPHEN 325 MG TAB PO ONE (17:37)
[2023-06-16] MEDS ORDERED: ACET-9800 PO (19:16)
== END 2023-06-16 19:25 | disposition home or self-care (01) ==
LOC: MED 15:25
DX: S90.122A Contusion of left lesser toe(s) without damage to nail, initial encounter (principal); W45.8XXA Other foreign body or object entering through skin, initial encounter; J44.9 Chronic obstructive pulmonary disease, unspecified; I10 Essential (primary) hypertension; J45.909 Unspecified asthma, uncomplicated; Z86.73 Personal history of transient ischemic attack (TIA), and cerebral infarction without residual deficits; Z79.899 Other long term (current) drug therapy; Z88.8 Allergy status to other drugs, medicaments and biological substances; Y93.89 Activity, other specified; Y92.89 Other specified places as the place of occurrence of the external cause; Y99.8 Other external cause status
CPT/HCPCS: 29515; 73660; 99283

== ENCOUNTER 2023-06-24 18:20 | Emergency (ER) | payer MEDICAID ==
[~2023-06-24] VITALS: Ht 172.7 cm; Wt 117.9 kg
[~2023-06-24 18:20] MED LIST changes: +ACET-9800 PO
[2023-06-24 18:38] VITALS: BP 133/69; PULSE 105; RESP 16; TEMP 97.9; O2SAT 96
[2023-06-24] MEDS ORDERED: ALBUTEROL 0.083% 2.5 MG/3 ML NEBU INH ONE (21:05)
[2023-06-24] MEDS: predniSONE 20 MG TAB PO ONE (21:10)
[2023-06-24 21:21] LABS: BASOPHILS # (AUTO) 0.2 K/uL (0.00-0.22); BASOPHILS % (AUTO) 2.2 % (0.0-2.0); EOSINOPHILS # (AUTO) 0.9 K/uL (0-0.4); EOSINOPHILS % (AUTO) 9.4 % (0.0-4.0); HEMATOCRIT 45.2 % (36-52); HEMOGLOBIN 15.4 g/dL (12.0-18.0); LYMPHOCYTES # (AUTO) 3.4 K/uL (2.0-11.5); LYMPHOCYTES % (AUTO) 34.8 % (20.5-51.1); MEAN CORPUSCULAR HEMOGLOBIN 29 pg (27-31); MEAN CORPUSCULAR HGB CONC 34 g/dL (33-37); MEAN CORPUSCULAR VOLUME 83.8 fL (80-94); MONOCYTES % (AUTO) 10.1 % (1.7-9.3); NEUTROPHILS # (AUTO) 4.2 K/uL (1.8-7.7); NEUTROPHILS % (AUTO) 43.5 % (42.2-75.2); PLATELET COUNT (AUTO) 272 K/uL (140-450); RED CELL DISTRIBUTION WIDTH 15.1 % (11.6-13.7); WHITE BLOOD COUNT (AUTO) 9.6 K/uL (4.8-10.8)
[2023-06-24] MEDS: IPRATROPIUM 0.02% 0.5 MG/2.5 ML NEBU INH ONE (21:32)
[2023-06-24 21:34] VITALS: PULSE 91; RESP 21; O2SAT 99
[2023-06-24 21:37] VITALS: PULSE 91; RESP 21; O2SAT 99
[2023-06-24 21:53] LABS: ALBUMIN 3.7 g/dL (3.4-5.0); ANION GAP 13.3 (8-16); CARBON DIOXIDE 29.6 mmol/L (21-32); POTASSIUM 3.9 mmol/L (3.5-5.1); TOTAL BILIRUBIN 0.6 mg/dL (0.0-1.0); TOTAL PROTEIN, SERUM 7.1 g/dL (6.4-8.2)
[2023-06-24] MEDS ORDERED: PRED20TA5 PO (22:18)
[2023-06-24 22:45] VITALS: BP 115/57; PULSE 100; RESP 20; TEMP 98.6; O2SAT 95
== END 2023-06-24 22:40 | disposition home or self-care (01) ==
LOC: MED 18:20
DX: J45.901 Unspecified asthma with (acute) exacerbation (principal); R60.9 Edema, unspecified; J44.9 Chronic obstructive pulmonary disease, unspecified; I10 Essential (primary) hypertension; F17.200 Nicotine dependence, unspecified, uncomplicated; Z86.73 Personal history of transient ischemic attack (TIA), and cerebral infarction without residual deficits; Z79.899 Other long term (current) drug therapy
CPT/HCPCS: 36415; 71045; 80053; 83880; 84484; 85025; 93005; 94640; 99285; J7512; J7613

== ENCOUNTER 2023-07-17 19:37 | Emergency (ER) | payer MEDICAID ==
[~2023-07-17] VITALS: Ht 172.7 cm; Wt 113.4 kg
[2023-07-17 20:00] VITALS: BP 120/75; PULSE 93; RESP 18; TEMP 97.8; O2SAT 97
[2023-07-17 20:30] VITALS: PULSE 94; RESP 16; O2SAT 97
[2023-07-17] MEDS: IPRATROPIUM 0.02% 0.5 MG/2.5 ML NEBU INH ONE (20:30)
[2023-07-17] MEDS: ALBUTEROL 0.083% 2.5 MG/3 ML NEBU INH ONE (20:30)
[2023-07-17 21:05] VITALS: BP 139/75; PULSE 94; RESP 16; TEMP 97.8; O2SAT 97
== END 2023-07-17 21:05 | disposition home or self-care (01) ==
LOC: MED 19:37
DX: J45.901 Unspecified asthma with (acute) exacerbation (principal); R60.0 Localized edema; I10 Essential (primary) hypertension; F17.210 Nicotine dependence, cigarettes, uncomplicated; Z86.73 Personal history of transient ischemic attack (TIA), and cerebral infarction without residual deficits; Z79.899 Other long term (current) drug therapy; Z88.1 Allergy status to other antibiotic agents
CPT/HCPCS: 94640; 99283; J7613; J7644

== ENCOUNTER 2023-08-04 19:58 | Emergency (ER) | payer MEDICAID ==
[~2023-08-04] VITALS: Ht 172.7 cm; Wt 99.8 kg
[2023-08-04 20:32] VITALS: BP 141/85; PULSE 103; RESP 20; TEMP 98.4; O2SAT 96
[2023-08-04] MEDS ORDERED: FUROSEMIDE 40 MG/4 ML VIAL IVP ONE (20:55)
[2023-08-04] MEDS ORDERED: IPRATROPIUM 0.02% 0.5 MG/2.5 ML NEBU INH ONE (20:58)
[2023-08-04] MEDS ORDERED: ALBUTEROL 0.083% 2.5 MG/3 ML NEBU INH ONE (20:58)
[2023-08-04] MEDS: IPRATROPIUM 0.02% 0.5 MG/2.5 ML NEBU INH ONE (20:59)
[2023-08-04] MEDS: ALBUTEROL 0.083% 2.5 MG/3 ML NEBU INH ONE (21:00)
[2023-08-04 21:01] VITALS: PULSE 92; RESP 25; O2SAT 97
[2023-08-04] MEDS ORDERED: FUROSEMIDE 40 MG TAB ONE (21:06)
[2023-08-04] MEDS ORDERED: predniSONE 20 MG TAB ONE (21:06)
[2023-08-04] MEDS: predniSONE 20 MG TAB PO ONE (21:11)
[2023-08-04] MEDS: FUROSEMIDE 40 MG TAB PO ONE (21:12)
[2023-08-04 21:19] LABS: BASOPHILS % (AUTO) 0.1 % (0.0-2.0); EOSINOPHILS # (AUTO) 1.3 K/uL (0-0.4); EOSINOPHILS % (AUTO) 9.5 % (0.0-4.0); HEMATOCRIT 43.9 % (36-52); HEMOGLOBIN 14.6 g/dL (12.0-18.0); LYMPHOCYTES # (AUTO) 3.7 K/uL (2.0-11.5); LYMPHOCYTES % (AUTO) 27.8 % (20.5-51.1); MEAN CORPUSCULAR HEMOGLOBIN 28 pg (27-31); MEAN CORPUSCULAR HGB CONC 33 g/dL (33-37); MEAN CORPUSCULAR VOLUME 85.2 fL (80-94); MONOCYTES # (AUTO) 1.2 K/uL (0.8-1.0); MONOCYTES % (AUTO) 8.8 % (1.7-9.3); NEUTROPHILS # (AUTO) 7.1 K/uL (1.8-7.7); NEUTROPHILS % (AUTO) 53.8 % (42.2-75.2); PLATELET COUNT (AUTO) 263 K/uL (140-450); RED BLOOD CELL COUNT(AUTO) 5.15 MIL/uL (4.20-6.10); RED CELL DISTRIBUTION WIDTH 15.2 % (11.6-13.7); WHITE BLOOD COUNT (AUTO) 13.3 K/uL (4.8-10.8)
[2023-08-04 21:27] VITALS: PULSE 100; RESP 25; O2SAT 95
[2023-08-04 21:31] LABS: AMPHETAMINE, URINE POSITIVE ng/ml (NEG <=1000); BARBITURATE, URINE NEGATIVE ng/ml (NEG <=200); BENZODIAZEPINE, URINE NEGATIVE ng/mL (NEG <=200); CANNABINOID, URINE POSITIVE ng/mL (NEG <=50); COCAINE, URINE NEGATIVE ng/mL (NEG <=300); OPIATE, URINE NEGATIVE ng/mL (NEG <=2000); PHENCYCLIDINE SCREEN,URINE NEGATIVE ng/mL (NEG <=25)
[2023-08-04 21:34] LABS: INR 0.9 (0.8-1.2); PARTIAL THROMBOPLASTIN TIME 24.2 secs (22-35.6); PROTHROMBIN TIME 9.5 secs (10.8-13.4)
[2023-08-04 21:39] LABS: ANION GAP 12.6 (8-16); CALCIUM 9.1 mg/dL (8.5-10.1); CARBON DIOXIDE 28.4 mmol/L (21-32); CREATININE 1.2 mg/dL (0.6-1.3)
[2023-08-04 21:42] LABS: ALANINE AMINOTRANSFERASE 37 U/L (12-78); ALBUMIN 3.6 g/dL (3.4-5.0); ALKALINE PHOSPHATASE 110 U/L (50-136); ASPARTATE AMINOTRANSFERASE 18 U/L (15-37); BILIRUBIN,DIRECT 0.1 mg/dL (0.0-0.3); TOTAL BILIRUBIN 0.5 mg/dL (0.0-1.0); TOTAL PROTEIN, SERUM 7.1 g/dL (6.4-8.2)
[2023-08-04] MEDS ORDERED: PRED20TA5 PO (22:08)
[2023-08-04] MEDS ORDERED: ALBU0.0912 IH (22:08)
[2023-08-04] MEDS ORDERED: FURO-572 PO (22:08)
[2023-08-04 22:24] VITALS: BP 132/85; PULSE 90; RESP 20; TEMP 98.4; O2SAT 97
== END 2023-08-04 22:24 | disposition home or self-care (01) ==
LOC: MED 19:58
DX: J45.901 Unspecified asthma with (acute) exacerbation (principal); R60.9 Edema, unspecified; I10 Essential (primary) hypertension; J44.9 Chronic obstructive pulmonary disease, unspecified; F15.90 Other stimulant use, unspecified, uncomplicated; Z86.73 Personal history of transient ischemic attack (TIA), and cerebral infarction without residual deficits; Z79.899 Other long term (current) drug therapy
CPT/HCPCS: 36415; 71045; 80048; 80076; 80305; 83880; 84484; 85025; 85610; 85730; 93005; 94640; 99285; J7512; J7613; J7644

== ENCOUNTER 2023-10-10 05:25 | Emergency (ER) | payer MEDICAID ==
[~2023-10-10] VITALS: Ht 172.7 cm; Wt 104.3 kg
[~2023-10-10 05:25] MED LIST changes: +ALBU0.0912 IH
[2023-10-10 05:28] VITALS: BP 145/81; PULSE 98; RESP 20; TEMP 98.1; O2SAT 99
[2023-10-10 06:04] LABS: BASOPHILS # (AUTO) 0.3 K/uL (0.00-0.22); BASOPHILS % (AUTO) 2.7 % (0.0-2.0); EOSINOPHILS # (AUTO) 1.7 K/uL (0-0.4); EOSINOPHILS % (AUTO) 14.2 % (0.0-4.0); HEMATOCRIT 45.3 % (36-52); HEMOGLOBIN 15.5 g/dL (12.0-18.0); LYMPHOCYTES # (AUTO) 2.7 K/uL (2.0-11.5); MEAN CORPUSCULAR HEMOGLOBIN 28 pg (27-31); MEAN CORPUSCULAR HGB CONC 34 g/dL (33-37); MEAN CORPUSCULAR VOLUME 82.9 fL (80-94); MONOCYTES # (AUTO) 0.8 K/uL (0.8-1.0); MONOCYTES % (AUTO) 6.5 % (1.7-9.3); NEUTROPHILS # (AUTO) 6.3 K/uL (1.8-7.7); NEUTROPHILS % (AUTO) 53.6 % (42.2-75.2); PLATELET COUNT (AUTO) 225 K/uL (140-450); RED BLOOD CELL COUNT(AUTO) 5.46 MIL/uL (4.20-6.10); RED CELL DISTRIBUTION WIDTH 14.2 % (11.6-13.7); WHITE BLOOD COUNT (AUTO) 11.8 K/uL (4.8-10.8)
[2023-10-10 06:05] VITALS: O2SAT 94
[2023-10-10 06:21] LABS: ANION GAP 11.2 (8-16); CALCIUM 8.8 mg/dL (8.5-10.1); CARBON DIOXIDE 28.6 mmol/L (21-32); POTASSIUM 3.8 mmol/L (3.5-5.1)
[2023-10-10 06:24] LABS: ALBUMIN 3.5 g/dL (3.4-5.0); BILIRUBIN,DIRECT 0.2 mg/dL (0.0-0.3); TOTAL BILIRUBIN 1.1 mg/dL (0.0-1.0); TOTAL PROTEIN, SERUM 7.2 g/dL (6.4-8.2)
[2023-10-10] MEDS: predniSONE 20 MG TAB PO ONE (06:25)
[2023-10-10] MEDS: ALBUTEROL HFA MDI 90 MCG/ACTUATION 8 GM INH ONE (06:49)
[2023-10-10 06:50] VITALS: PULSE 98; RESP 14; O2SAT 96
[2023-10-10] MEDS ORDERED: METF-1139 PO (06:58)
[2023-10-10 07:13] VITALS: BP 145/81; PULSE 98; RESP 14; TEMP 98.1; O2SAT 96
== END 2023-10-10 07:13 | disposition home or self-care (01) ==
LOC: MED 05:25
DX: R22.43 Localized swelling, mass and lump, lower limb, bilateral (principal); R73.9 Hyperglycemia, unspecified; I10 Essential (primary) hypertension; J44.9 Chronic obstructive pulmonary disease, unspecified; F12.90 Cannabis use, unspecified, uncomplicated; Z86.73 Personal history of transient ischemic attack (TIA), and cerebral infarction without residual deficits; Z79.899 Other long term (current) drug therapy; Z79.2 Long term (current) use of antibiotics; Z88.8 Allergy status to other drugs, medicaments and biological substances
CPT/HCPCS: 36415; 80048; 80076; 83880; 85025; 94664; 99283; J7512

== ENCOUNTER 2023-11-11 07:42 | Emergency (ER) | payer MEDICAID ==
[~2023-11-11] VITALS: Ht 172.7 cm; Wt 117.0 kg
[~2023-11-11 07:42] MED LIST changes: +METF-1139 PO
[2023-11-11 08:03] VITALS: BP 167/83; PULSE 98; RESP 18; TEMP 98; O2SAT 96
[2023-11-11] MEDS ORDERED: ELIMC TP (08:22)
[2023-11-11] MEDS ORDERED: HYD2.5O TP (08:22)
[2023-11-11] MEDS ORDERED: CETI10TA81 PO (08:22)
[2023-11-11 08:43] VITALS: BP 167/83; PULSE 98; RESP 18; TEMP 98; O2SAT 96
== END 2023-11-11 08:42 | disposition home or self-care (01) ==
LOC: MED 07:42
DX: L29.9 Pruritus, unspecified (principal); I10 Essential (primary) hypertension; E11.9 Type 2 diabetes mellitus without complications; F17.200 Nicotine dependence, unspecified, uncomplicated; Z86.73 Personal history of transient ischemic attack (TIA), and cerebral infarction without residual deficits; Z79.1 Long term (current) use of non-steroidal anti-inflammatories (NSAID); Z79.84 Long term (current) use of oral hypoglycemic drugs; Z79.899 Other long term (current) drug therapy; Z88.8 Allergy status to other drugs, medicaments and biological substances
CPT/HCPCS: 99282

== ENCOUNTER 2023-11-13 23:10 | Emergency (ER) | payer MEDICAID ==
[~2023-11-13] VITALS: Ht 172.7 cm; Wt 117.9 kg
[~2023-11-13 23:10] MED LIST changes: +CETI10TA81 PO; +ELIMC TP; +HYD2.5O TP
[2023-11-13 23:27] VITALS: BP 144/83; PULSE 96; RESP 16; TEMP 97.7; O2SAT 97
[2023-11-14] MEDS ORDERED: SULF-59 PO (00:46)
[2023-11-14] MEDS ORDERED: PERM5CRE3 TP (00:46)
--- NOTE | 2023-11-14 00:50 | NUR ---
Written and verbal after care instructions given and explained. Patient alert, oriented and verbalized understanding of instructions. Ambulatory with steady gait. All questions addressed prior to discharge. ID band removed. Patient advised to follow up with PMD. Rx given. Patient educated on indication of medication including possible reaction and side effects. Opportunity to ask questions provided and answered.
== END 2023-11-14 00:50 | disposition home or self-care (01) ==
LOC: MED 23:10
DX: L02.511 Cutaneous abscess of right hand (principal); I10 Essential (primary) hypertension; Z86.73 Personal history of transient ischemic attack (TIA), and cerebral infarction without residual deficits; Z79.84 Long term (current) use of oral hypoglycemic drugs; Z79.899 Other long term (current) drug therapy; Z88.8 Allergy status to other drugs, medicaments and biological substances
CPT/HCPCS: 99283

== ENCOUNTER 2023-12-05 13:40 | Emergency (ER) | payer SELFPAY ==
[~2023-12-05] VITALS: Ht 165.1 cm; Wt 113.9 kg
[~2023-12-05 13:40] MED LIST changes: +PERM5CRE3 TP; +SULF-59 PO
[2023-12-05 13:53] VITALS: BP 155/81; PULSE 113; RESP 18; TEMP 98.7; O2SAT 94
[2023-12-05] MEDS ORDERED: CEPH-588 PO (14:18)
== END 2023-12-05 14:26 | disposition home or self-care (01) ==
LOC: MED 13:40
DX: L03.811 Cellulitis of head [any part, except face] (principal); J45.909 Unspecified asthma, uncomplicated; E11.9 Type 2 diabetes mellitus without complications; I10 Essential (primary) hypertension; Z86.73 Personal history of transient ischemic attack (TIA), and cerebral infarction without residual deficits; Z79.899 Other long term (current) drug therapy; Z88.8 Allergy status to other drugs, medicaments and biological substances
CPT/HCPCS: 99284

== ENCOUNTER 2023-12-07 00:57 | Emergency (ER) | payer MEDICAID ==
[~2023-12-07] VITALS: Ht 165.1 cm; Wt 113.4 kg
[~2023-12-07 00:57] MED LIST changes: +CEPH-588 PO
[2023-12-07 01:00] VITALS: BP 137/83; PULSE 110; RESP 20; TEMP 99.4; O2SAT 94
[2023-12-07] MEDS ORDERED: IBUP-2213 PO (02:21)
[2023-12-07] MEDS: KETOROLAC 60 MG/2 ML VIAL IM ONE (02:47)
[2023-12-07 03:01] VITALS: BP 137/83; PULSE 80; RESP 18; TEMP 98; O2SAT 96
== END 2023-12-07 03:01 | disposition home or self-care (01) ==
LOC: MED 00:57
DX: L02.811 Cutaneous abscess of head [any part, except face] (principal); J44.9 Chronic obstructive pulmonary disease, unspecified; E11.9 Type 2 diabetes mellitus without complications; I10 Essential (primary) hypertension; Z86.73 Personal history of transient ischemic attack (TIA), and cerebral infarction without residual deficits; F17.200 Nicotine dependence, unspecified, uncomplicated; Z85.118 Personal history of other malignant neoplasm of bronchus and lung; Z79.899 Other long term (current) drug therapy; Z88.1 Allergy status to other antibiotic agents
CPT/HCPCS: 96372; 99283; J1885